=== PATIENT | female | born 1995 ===

== ENCOUNTER 2018-12-16 20:09 | Emergency (ER) | payer SELFPAY ==
[~2018-12-16] VITALS: Ht 157.5 cm; Wt 90.7 kg
[2018-12-16] MEDS ORDERED: TETANUS,DIPTH,PERTUSS P/F (BOOSTRIX) 0.5 ML VIAL IM ONE (20:45)
[2018-12-16] MEDS ORDERED: AMOX-358 PO (20:55)
--- NOTE | 2018-12-16 20:55 | ED Integumentary General ---
General Chief Complaint: Bite-Animal/Human/Insect Stated Complaint: BIT BY SNAKE Nursing Triage Note: PT STATES ROUGHLY TWENTY MINUTES PRIOR TO ARRIVAL SHE WAS BITTEN ON THE LEG BY A BLACK SNAKE OF UNKNOWN SPECIES. 3-4 SHALLOW ABRASIONS NOTED TO THE LEFT CALF, INDICATIVE OF A NON VENOMOUS SNAKE BITE. Source: patient Exam Limitations: no limitations History of Present Illness Date Seen by Provider: Dec 16, 2018 Time Seen by Provider: 20:15 Initial Comments 23-year-old female who presents to the emergency room with complaints of a snake bite to her left calf area. She reports that she was using a Park restroom when she felt a bite to her left calf. She reports that the snake was small and black in color. She has abrasions to her left inner calf. There is no puncture wounds suggesting a venomous snake. She is not up-to-date on her tetanus vaccine. Timing/Duration: just prior to arrival Location: extremities Possible Cause: other (snake bite) Allergies and Home Medications Allergies Coded Allergies: No Known Drug Allergies (Unverified , 12/16/18) Home Medications Amoxicillin/Potassium Clav 1 Each Tablet, 1 EACH PO BID Prescribed by: ROSENDO ISABEL on 12/16/182054 Patient Home Medication List Home Medication List Reviewed: Yes Review of Systems Review of Systems Constitutional: see HPI; No chills, No fever Skin: see HPI, other (snake bite to left calf) All Other Systems Reviewed Negative Unless Noted: Yes Past Psuqavt-Olrlmq-Xqsotv Hx Past Med/Social Hx: Reviewed Nursing Past Med/Soc Hx Patient Social History Alcohol Use: Denies Use Recreational Drug Use: No Smoking Status: Never a Smoker Recent Foreign Travel: No Contact w/Someone Who Travel: No Recent Infectious Disease Expo: No Recent Hopitalizations: No Immunizations Up To Date Tetanus Booster (TDap): Unknown PED Vaccines UTD: Yes Seasonal Allergies Seasonal Allergies: No Past Medical History Surgeries: No Respiratory: No Cardiac: No Neurological: No : No Genitourinary: No Gastrointestinal: No Musculoskeletal: No Endocrine: No HEENT: No Cancer: No Psychosocial: No Integumentary: No Blood Disorders: No Family Medical History Reviewed Nursing Family Hx Physical Exam Vital Signs Vital Signs - First Documented 12/16/18 20:14 Temp 98.3 Pulse 89 Resp 20 B/P (MAP) 138/90 (106) Pulse Ox 98 O2 Delivery Room Air Capillary Refill : Less Than 3 Seconds General Appearance: WD/WN, no apparent distress Cardiovascular: normal peripheral pulses, regular rate, rhythm, no edema, no gallop, no JVD, no murmur Respiratory: chest non-tender, lungs clear, normal breath sounds, no res piratory distress, no accessory muscle use Skin: normal color, warm/dry Skin Problem Location: lower extremities Skin Problem Character: other (abrasions to calf area) Progress/Results/Core Measures Results/Orders My Orders Orders - ROSENDO ISABEL Dipht,Pertuss(Acell),Tet Adult (Boostrix (12/16/18 20:45) Amoxicillin/Clavulanate Tablet (Augmenti (12/17/18 07:00) Amoxicillin/Clavulanate Tablet (Augmenti (12/16/18 21:11) Vital Signs/I&O 12/16/18 12/16/18 20:14 21:20 Temp 98.3 98.3 Pulse 89 89 Resp 20 20 B/P (MAP) 138/90 (106) 138/90 (106) Pulse Ox 98 98 O2 Delivery Room Air Blood Pressure Mean: 106 Departure Impression Primary Impression: Bite by animal Disposition: 01 HOME, SELF-CARE Condition: Stable/Unchanged Departure-Patient Inst. Decision time for Depature: 20:54 Patient Instructions: Animal Bites (DC) Add. Discharge Instructions: Take medications as directed. Watch for signs of infection such as increased redness, swelling, drainage, pain. Follow-up with primary care as needed. Return back to the emergency room for worsening symptoms or concerns as needed. All discharge instructions reviewed with patient and/or family. Voiced grover bartholomew. Scripts Amoxicillin/Potassium Clav (Augmentin 875-125 Tablet) 1 Each Tablet 1 EACH PO BID for 7 Days, #14 TAB 0 Refills Prov: ROSENDO ISABEL 12/16/18 ROSENDO ISABEL Dec 16, 2018 20:55
[2018-12-16] MEDS ORDERED: AUGMENTIN 875 MG TAB (AMOXICILLIN/CLAVULANATE) ONE (21:11)
[2018-12-16 21:20] VITALS: BP 138/90
[2018-12-17] MEDS ORDERED: AUGMENTIN 875 MG TAB (AMOXICILLIN/CLAVULANATE) PO SCH (07:00)
== END 2018-12-16 21:27 | disposition home or self-care (01) ==
LOC: ER 20:11
DX: S80.812A Abrasion, left lower leg, initial encounter (principal); W59.11XA Bitten by nonvenomous snake, initial encounter
CPT/HCPCS: 90715; 99284

== ENCOUNTER 2020-06-09 17:06 | Emergency (ER) | payer SELFPAY ==
[~2020-06-09] VITALS: Ht 157.5 cm; Wt 90.9 kg
[~2020-06-09 17:06] MED LIST: AMOX-358 PO
[2020-06-09 17:12] VITALS: BP 134/93
--- NOTE | 2020-06-09 17:39 | ED Back Pain ---
General Chief Complaint: Back Problems Stated Complaint: BACK PAIN Source of Information: Patient Exam Limitations: No Limitations History of Present Illness Date Seen by Provider: Jun 09, 2020 Time Seen by Provider: 17:33 Initial Comments Patient is a 25-year-old female who presents to the emergency room with a chief complaint of mid thoracic back pain. Patient states she has had back pain for about the last 2 weeks. Patient states that she has been taking Tylenol without relief of symptoms. Patient cannot recall any trauma or strain or anything else that may have exacerbated her back pain. She denies any heavy lifting. Patient denies any numbness, tingling, weakness in her lower extremities. She denies any loss of bowel or bladder function. Patient states that moving around makes her pain worse. She is not taken any Tylenol since last . Patient denies any dysuria, urgency or frequency. All other review of systems reviewed and negative except as stated above. Timing/Duration: Getting Worse Severity: Moderate Pain/Injury Location: Back Method of Injury: Unknown Associated Symptoms: muscle spasms Allergies and Home Medications Allergies Coded Allergies: No Known Drug Allergies (Unverified , 12/16/18) Home Medications Amoxicillin/Potassium Clav 1 Each Tablet, 1 EACH PO BID Prescribed by: ROSENDO ISABEL on 12/16/182054 Patient Home Medication List Home Medication List Reviewed: Yes Review of Systems Constitutional: see HPI EENTM: no symptoms reported Cardiovascular: no symptoms reported Gastrointestinal: no symptoms reported Genitourinary: no symptoms reported Musculoskeletal: back pain Skin: no symptoms reported All Other Systems Reviewed Negative Unless Noted: Yes Past Yhdqfyq-Yjsdlz-Uxqfll Hx Patient Social History Recent Foreign Travel: No Contact w/Someone Who Travel: No Recent Hopitalizations: No Immunizations Up To Date Tetanus Booster (TDap): Unknown PED Vaccines UTD: Yes Seasonal Allergies Seasonal Allergies: No Past Medical History Surgeries: No Respiratory: No Cardiac: No Neurological: No Genitourinary: No Gastrointestinal: No Musculoskeletal: No Endocrine: No HEENT: No Cancer: No Psychosocial: No Integumentary: No Blood Disorders: No Physical Exam Vital Signs Capillary Refill : Height, Weight, BMI Height: 5'2.00" Weight: 200lbs. oz. 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 Skin: Normal Color, Warm/Dry Progress/Results/Core Measures Results/Orders My Orders Orders - MORALES BAIG MD Orphenadrine Inj (Ed Only) (Norflex Inje (06/09/20 17:45) Ketorolac Injection (Toradol Injection) (06/09/20 17:45) Medications Given in ED Current Medications Medications Dose Ordered Sig/Estelita Route Start Time Stop Time Status Last Admin Dose Admin Ketorolac Tromethamine 30 mg ONCE ONCE IM 06/09/20 17:45 06/09/20 17:46 DC 06/09/20 17:43 30 MG Orphenadrine Citrate 60 mg ONCE ONCE IM 06/09/20 17:45 06/09/20 17:46 DC 06/09/20 17:43 60 MG Departure Impression Primary Impression: Back pain Qualified Codes: M54.6 - Pain in thoracic spine Disposition: HOME, SELF-CARE Condition: Stable Departure-Patient Inst. Decision time for Depature: 17:36 Referrals: NO,LOCAL PHYSICIAN (PCP/Family) Primary Care Physician Patient Instructions: Acute Pain, Adult Add. Discharge Instructions: Drink plenty of fluids to stay well-hydrated. Take naproxen as directed twice daily with food. Please call and follow-up with a primary care provider. Return to the emergency room for any worsening pain especially if it is associated with new, concerning or worsening symptoms. Scripts Naproxen (Naprosyn) 500 Mg Tablet 500 MG PO BID PRN for PAIN-MODERATE (5-7), #30 TAB 0 Refills Prov: MOARLES BAIG MD 06/09/20 MORALES BAIG MD Jun 09, 2020 17:39
[2020-06-09] MEDS ORDERED: KETOROLAC 30 MG/ML VIAL IM ONE (17:45)
[2020-06-09] MEDS ORDERED: ORPHENADRINE 60 MG/2 ML (NORFLEX) AMP (ED ONLY) IM ONE (17:45)
[2020-06-09] MEDS ORDERED: NAPR-1071 PO (17:49)
== END 2020-06-09 17:58 | disposition home or self-care (01) ==
LOC: EDUNIT# 17:06 → ER 17:10
DX: M54.6 Pain in thoracic spine (principal)
CPT/HCPCS: 99284